=== PATIENT | male | born 1970 | race Caucasian/White ===

== ENCOUNTER 2016-11-08 15:49 | Emergency (ER) | payer BC ==
--- NOTE | ~2016-11-08 | CR111 ---
[facility] A Service of [facility] RADIOLOGY TEXT RESULTS PATIENT: SARAH ROJO LOCATION: CFTX : 68 UNIT #: [id number] AGE: [address]: Sara Ponce SEX: M ORDER DR: [id number] [facility] [address] [place], [place] [address] [id number] MR#: [id number] Acc #: [id number] NAME: SARAH ROJO : 1970 SEX: M STUDY DATE/TIME: 11/08/2016 16:45 UNIT: [facility] ROOM: STUDY DESCRIPTION: CR Finger 2 View 3rd Rt Attending Physician: Sara Ponce Pa-C Ordering Physician: Sara Ponce Pa-C Primary Care Physician: [facility] MEDICAL IMAGING REPORT This report is preliminary unless electronic signature is present EXAM Right third finger, 11/08/2016 HISTORY 46-year-old male with third finger pain and swelling after getting caught in carport yesterday. COMPARISON None. FINDINGS 3 views of the right third finger demonstrate no acute fracture or dislocation. No radiopaque foreign bodies or soft tissue gas. IMPRESSION No acute fracture or dislocation. No radiopaque foreign bodies or soft tissue gas. Dictated by... Jamin Bueno M.D. THIS IS AN ELECTRONICALLY VERIFIED REPORT Jamin Bueno M.D. at 11/08/2016 10:54 PM BOZENA/carley TD: 11/08/2016 21:22 JOB #: [id number] MEDICAL IMAGING REPORT Page 1 of 1 COPY
[~2016-11-08 15:49] MED LIST: ALBUTEROL17 GM INH; FLEXERIL10 MG PO; NAPROXEN PO
== END 2016-11-08 17:45 | disposition home or self-care (01) ==
LOC: CFTX 15:49 → CED 15:49 → CFTX 16:39
DX: S60.031A Contusion of right middle finger without damage to nail, initial encounter (principal); F17.210 Nicotine dependence, cigarettes, uncomplicated; Z88.1 Allergy status to other antibiotic agents; X58.XXXA Exposure to other specified factors, initial encounter; Y92.009 Unspecified place in unspecified non-institutional (private) residence as the place of occurrence of the external cause
CPT/HCPCS: 73140; 99283

== ENCOUNTER 2016-11-13 14:52 | Emergency (ER) | payer BC | END 2016-11-13 16:26 | disposition short-term general hospital (02) | LOC: CED 14:52 → CFTX 14:52 → CED 15:56 → CFTX 16:26 | DX: L03.113 Cellulitis of right upper limb (principal); F17.210 Nicotine dependence, cigarettes, uncomplicated; Z88.0 Allergy status to penicillin; Z88.1 Allergy status to other antibiotic agents | CPT/HCPCS: 99283 ==